=== PATIENT | female | born 1995 | race African-American/Black ===

== ENCOUNTER 2019-07-26 03:39 | Emergency (ER) | payer SELFPAY ==
[2019-07-26 04:08] LABS: Hemoglobin 12.3 g/dL (12.0-16.0); Mean Corpuscular HGB CONC 33.3 g/dL (32.0-36.0); Mean Platelet Volume 6.5 fL (7.4-10.4); Platelet Count 298 thou/uL (130-400); RBC Distribution Width 12.3 % (11.5-14.5); Red Blood Cell (RBC) Count 3.84 mill/uL (4.20-5.40); White Blood Cell (WBC) Count 3.7 thou/uL (4.8-10.8)
[2019-07-26 04:45] LABS: Eosinophils 1 % (0-10); Lymphocytes 49 % (21-51); MDiff Complete? YES; Monocytes 10 % (0-10); Neutrophil 40 % (42-75); Platelet Morphology Comment Appears Adequate; RBC Morphology Normal
[2019-07-26 04:46] LABS: Bacteria/HPF None Seen HPF (None Seen); Bilirubin Negative (Negative); Blood, Urine 2+ (Negative); Clarity Clear (Clear); Glucose, Urine (Dipstick) Normal (Negative); Leukocyte Negative Leu/uL (Negative); Mucous/LPF 3+ LPF (<2+); Nitrite Negative (Negative); Pregnancy Test - Urine (BHCG) Negative (Negative); Pregu Control Background? CLEAR/WHITE (CLR/WHITE); Pregu Control Bar Appear? YES (CONTROL BAR); Protein, Urine (Dipstick) 70 mg/dL (Neg-Trace); RBC/HPF Greater than 50 HPF (0-3); Specific Gravity 1.049 (1.002-1.036)
== END 2019-07-26 05:08 | disposition home or self-care (01) ==
LOC: ERS 03:39
DX: R11.2 Nausea with vomiting, unspecified (principal); F17.290 Nicotine dependence, other tobacco product, uncomplicated
CPT/HCPCS: 36415; 81003; 81015; 81025; 85025; 99284

== ENCOUNTER 2019-08-12 16:23 | Emergency (ER) | payer SELFPAY ==
[2019-08-12] MEDS ORDERED: Acetaminophen 500 MG TAB ONE (17:08)
[2019-08-12 17:40] LABS: Bacteria/HPF None Seen HPF (None Seen); Bilirubin Negative (Negative); Blood, Urine Negative (Negative); Clarity Clear (Clear); Glucose, Urine (Dipstick) Normal (Negative); Leukocyte Negative Leu/uL (Negative); Nitrite Negative (Negative); Protein, Urine (Dipstick) 30 mg/dL (Neg-Trace); Squamous Epithelial 0-3 HPF (0-3); Urobilinogen Normal mg/dL (Less than 2); WBC/HPF 0-3 HPF (0-3)
[2019-08-12 17:42] LABS: Pregnancy Test - Urine (BHCG) Negative (Negative); Pregu Control Background? CLEAR/WHITE (CLR/WHITE); Pregu Control Bar Appear? YES (CONTROL BAR); Specific Gravity 1.046 (1.002-1.036)
[2019-08-12] MEDS ORDERED: Lidocaine 1% PF 5 ML VIAL ONE (19:25)
[2019-08-12] MEDS ORDERED: cefTRIAXone\\ROCEPHIN 250 MG VIAL ONE (19:25)
[2019-08-12] MEDS ORDERED: Doxycycline 100 MG CAP PO SCH (19:45)
--- NOTE | 2019-08-12 20:22 | ULT ---
Pelvic sonogram transabdominal imaging with duplex evaluation HISTORY: Right adnexal pain. FINDINGS: Urinary bladder has normal appearance. Uterus has a homogeneous echotexture and is 7.6 cm. Endometrium is 1.1 cm. Physiologic amount of free fluid is present within the cul-de-sac. Right ovary is 3.1 cm in the left is 2.7 cm. Each shows small follicles. Good color and spectral Dopp ler flow. IMPRESSION : No abnormalities are demonstrated.
[2019-08-14 23:11] LABS: Chlamydia by PCR Not Detected (NotDetected); GC by PCR Not Detected (NotDetected)
== END 2019-08-12 21:22 | disposition home or self-care (01) ==
LOC: ERS 16:23
DX: N73.9 Female pelvic inflammatory disease, unspecified (principal)
CPT/HCPCS: 76856; 81003; 81015; 81025; 87480; 87491; 87510; 87591; 87660; 96372; J0696; J2001

== ENCOUNTER 2022-04-22 22:24 | Emergency (ER) | payer SELFPAY ==
[2022-04-22] MEDS ORDERED: Ondansetron ODT 4 MG TAB ONE (22:53)
== END 2022-04-22 23:25 | disposition home or self-care (01) ==
LOC: ERS 22:24
DX: R11.2 Nausea with vomiting, unspecified (principal); F17.290 Nicotine dependence, other tobacco product, uncomplicated
CPT/HCPCS: 99283; Q0162

== ENCOUNTER 2022-06-11 19:57 | Emergency (ER) | payer SELFPAY | END 2022-06-11 21:58 | disposition home or self-care (01) | LOC: ERS 19:57 | DX: R07.9 Chest pain, unspecified (principal) | CPT/HCPCS: 71045; 93005 ==